=== PATIENT | male | born 1980 | race Caucasian/White ===

== ENCOUNTER → 2023-03-22 10:12 | Outpatient (CLI) | payer OTHER, MEDICAID, SELFPAY ==
[2023-03-22 11:04] LABS: Influenza A - CEPHEID Flu A NEGATIVE (NEGATIVE); Influenza B - CEPHEID Flu B NEGATIVE (NEGATIVE); Respiratory Syncytial Virus Negative (Negative)
[2023-03-22 11:18] LABS: COVID-19 CEPHEID 4-PLEX PCR Negative (Negative)
== END ==
PROVIDERS: Visit Provider Nurse Practitioner Family
DX: R51.9 Headache, unspecified (principal)
CPT/HCPCS: 0241U

== ENCOUNTER → 2023-08-25 08:39 | Outpatient (CLI) | payer OTHER, MEDICAID, SELFPAY ==
[2023-08-25 09:23] LABS: Influenza A - CEPHEID Flu A NEGATIVE (NEGATIVE); Influenza B - CEPHEID Flu B NEGATIVE (NEGATIVE); Respiratory Syncytial Virus Negative (Negative)
[2023-08-25 09:24] LABS: COVID-19 CEPHEID 4-PLEX PCR Negative (Negative)
== END ==
PROVIDERS: Visit Provider Nurse Practitioner Family
DX: R05.1 Acute cough (principal)
CPT/HCPCS: 0241U; C9803

== ENCOUNTER → 2023-10-11 12:46 | Outpatient (CLI) | payer OTHER, SELFPAY ==
--- NOTE | 2023-10-11 12:49 | DI.RAD.S_ITS ---
PROCEDURE: XR LUMBAR SPINE MIN 4V INDICATIONS: Lumbar pain TECHNIQUE: 5 views of the lumbar spine were acquired, including bilateral oblique views. COMPARISON: None. FINDINGS: Bones: 5 nonrib-bearing vertebrae are present. Mild dextrocurvature of the lumbar spine. Facet arthropathy of the lower lumbar spine. Mild degenerative endplate changes. No vertebral body compression fractures. No suspicious bony lesions. Soft tissues: Overlying bowel gas pattern is normal. No suspicious soft tissue calcifications. Right upper quadrant surgical clips. Oblique images: No pars defects. IMPRESSION: Mild degenerative changes of the lumbar spine with mild dextrocurvature. Dictated by: Edwin Hdz M.D. on 10/11/2023 at 14:11 Approved by: Edwin Hdz M.D. on 10/11/2023 at 14:13
--- NOTE | 2023-10-11 12:49 | DI.RAD.S_ITS ---
PROCEDURE: XR SHOULDER LT MIN 2V INDICATIONS: Left shoulder pain TECHNIQUE: 3 views of the shoulder were acquired. COMPARISON: None. FINDINGS: Bones: No fractures or dislocations. No suspicious bony lesions. Visualized ribs appear intact. Soft tissues: No suspicious soft tissue calcifications. IMPRESSION: No acute bony abnormality. Dictated by: Edwin Hdz M.D. on 10/11/2023 at 14:13 Approved by: Edwin Hdz M.D. on 10/11/2023 at 14:14
--- NOTE | 2023-10-11 12:49 | DI.RAD.S_ITS ---
PROCEDURE: XR CLAVICLE LT INDICATIONS: Clavicle tenderness TECHNIQUE: 2 views of the clavicle were acquired. COMPARISON: None. FINDINGS: Bones: No fractures or dislocations. No suspicious bony lesions. Soft tissues: No suspicious soft tissue calcifications. IMPRESSION: No acute bony abnormality. Dictated by: Edwin Hdz M.D. on 10/11/2023 at 14:11 Approved by: Edwin Hdz M.D. on 10/11/2023 at 14:11
== END ==
PROVIDERS: Referring Provider Nurse Practitioner Family; Visit Provider Nurse Practitioner Family
DX: W19.XXXA Unspecified fall, initial encounter (principal); M47.816 Spondylosis without myelopathy or radiculopathy, lumbar region; S46.912A Strain of unspecified muscle, fascia and tendon at shoulder and upper arm level, left arm, initial encounter
CPT/HCPCS: 72110; 73000; 73030

== ENCOUNTER 2024-01-14 08:32 | Emergency (ER) | payer OTHER, MEDICAID, SELFPAY ==
[2024-01-14 08:42] VITALS: BP 134/81; PULSE 65; RESP 17; TEMP 36.4; O2SAT 95; BMI 28.7
--- NOTE | 2024-01-14 08:47 | DI.RAD.S_ITS ---
PROCEDURE: XR CHEST 1V INDICATIONS: chest pain TECHNIQUE: One view of the chest was acquired. COMPARISON: None. FINDINGS: Surgical changes and devices: None. Lungs and pleura: Lungs are clear. No pleural effusions or pneumothorax. Mediastinum: Mediastinal contours appear normal. Heart size is normal. Bones and chest wall: No suspicious bony lesions. Overlying soft tissues appear unremarkable. IMPRESSION: No acute cardiopulmonary abnormality is seen. Approved by: Imelda Walls M.D. on 01/14/2024 at 9:29
[2024-01-14 08:51] VITALS: PULSE 57; RESP 14; O2SAT 97
[2024-01-14 09:00] VITALS: BP 131/83; PULSE 53; RESP 20; O2SAT 96
[2024-01-14 09:07] LABS: Add Manual Diff / Slide Review NO; Basophils Absolute Auto 100 /uL (0-100); Basophils Percent Auto 0.7 % (0-2); Eosinophils Absolute Auto 100 /uL (0-450); Eosinophils Percent Auto 1.3 % (2-4); Hematocrit 43.8 % (41-53); Hemoglobin 15.1 g/dL (13.5-17.5); Lymphocytes Absolute Auto 2000 /uL (1100-4500); Lymphocytes Percent Auto 26.2 % (25-40); Mean Corpuscular HGB Conc 34.4 % (30-36); Mean Corpuscular Hemoglobin 31.5 PG (26-34); Mean Corpuscular Volume 91.6 fL (80-100); Monocytes Absolute Auto 500 /uL (0-900); Monocytes Percent Auto 6.6 % (3-14); Neutrophils Absolute Auto 5100 /uL (1500-7000); Neutrophils Percent Auto 65.2 % (50-75); Platelet Count 220 X10^3/uL (150-400); Red Blood Cell Count 4.78 X10^6/uL (4.5-5.9); Red Cell Distribution Width 13.9 % (11.6-14.8); White Blood Cell Count 7.8 X10^3/uL (4.5-11.0)
[2024-01-14 09:15] LABS: PTT Partial Thromboplastin Tim 33 SECONDS (25.1-36.5)
[2024-01-14 09:19] LABS: COVID19 -Nasal RAPID Negative (Negative)
--- NOTE | 2024-01-14 09:22 | ED_ITS ---
HPI - Chest Pain General Chief Complaint: Chest Pain Stated Complaint: chest pains/headache Time Seen by Provider: 01/14/24 09:12 Source: patient Mode of arrival: Ambulatory History of Present Illness HPI narrative: Patient 43-year-old male history of smoking hypertension hyperlipidemia presenting today with chest heaviness ongoing for the last few days. He denies any sort of shortness of breath who remains heaviness center of his chest. No nausea vomiting he denies any fever or cough. He is also having headache. He denies any nausea or vomiting. It has been an ongoing headache he has got a mild sore throat. Related Data Allergies Allergy/AdvReac Type Severity Reaction Status Date / Time Penicillins Allergy Mild Hives Verified 01/14/24 08:46 Patient History Social History Smoking Status: Current every day smoker Smoking Status: Current every day smoker alcohol intake frequency: 0-2 drinks per day Substance Use Type: marijuana Exam Initial Vital Signs Initial Vital Signs: Vital Signs Temperature 97.5 F L 01/14/24 08:42 Pulse Rate 65 01/14/24 08:42 Respiratory Rate 17 01/14/24 08:42 Blood Pressure 134/81 01/14/24 08:42 Pulse Oximetry 95 01/14/24 08:42 Oxygen Delivery Method Room Air 01/14/24 08:42 GENERAL: Alert 43-year-old male appears older than stated age and in no acute distress. HEENT: Head atraumatic,EOMI, pupils reactive, face symmetric, moist mucous membranes, no meningeal signs CARDIOVASCULAR: Regular rate and rhythm without murmurs, rubs or gallops. RESPIRATORY: Breath sounds equal bilaterally, no wheezes rales or rhonchi. ABDOMEN: Soft, nontender. Normoactive bowel sounds all 4 quadrants. No guarding or rebound. EXTREMITIES: Normal range of motion, no clubbing or edema. Neurovascularly intact NEUROLOGICAL: Alert and oriented x4.Normal gait and speech. SKIN: Warm, dry, no laceration, no petechiae, no rashes or lesions. Course Orders Ordered: ED Orders 01/14/24 08:47 XR chest 1V Stat Comprehensive Metabolic Panel Stat Lipase Stat Magnesium Stat Troponin & CK Cardiac Panel Stat EKG-12 Lead Stat 01/14/24 08:55 COVID19 -Nasal RAPID Stat Complete Blood Count AUTO DIFF Stat PTT Partial Thromboplastin Alberto Stat Prothrombin Time INR Stat Discontinued Medications Aspirin (Aspirin 81 Mg Chew Tab) 324 mg PO NOW ONE Stop: 01/14/24 08:48 Last Admin: 01/14/24 10:30 Dose: Not Given Documented By: CHARLES Sodium Chloride (Normal Saline 0.9%) 1,000 mls @ 1,000 mls/hr IV BOLUS ONE Stop: 01/14/24 11:28 Last Admin: 01/14/24 10:31 Dose: Not Given Documented By: CHARLES Ketorolac Tromethamine (Ketorolac 30 Mg/Ml Vial) 15 mg IV NOW ONE Stop: 01/14/24 10:31 Last Admin: 01/14/24 10:31 Dose: Not Given Documented By: CHARLES Vital Signs Vital signs: Vital Signs - 8 hr 01/14/24 08:42 01/14/24 08:51 01/14/24 09:00 Temperature 97.5 F L Pulse Rate 65 57 L Respiratory Rate 17 14 Blood Pressure 134/81 131/83 Pulse Oximetry 95 97 Oxygen Delivery Method Room Air 01/14/24 09:00 01/14/24 09:30 01/14/24 09:30 Temperature Pulse Rate 53 L 50 L Respiratory Rate 20 14 Blood Pressure 120/74 Pulse Oximetry 96 95 Oxygen Delivery Method 01/14/24 10:00 01/14/24 10:00 01/14/24 10:30 Temperature Pulse Rate 63 Respiratory Rate 16 Blood Pressure 122/73 129/81 Pulse Oximetry 96 Oxygen Delivery Method 01/14/24 10:30 Temperature Pulse Rate 76 Respiratory Rate 23 Blood Pressure Pulse Oximetry 98 Oxygen Delivery Method Room Air MDM - Chest Pain Lab Data 01/14/24 08:55 01/14/24 08:47 Labs: Lab Results 01/14/24 01/14/24 Range/Units 08:47 08:55 WBC 7.8 (4.5-11.0) X10^3/uL RBC 4.78 (4.5-5.9) X10^6/uL Hgb 15.1 (13.5-17.5) g/dL Hct 43.8 (41-53) % MCV 91.6 (80-100) fL MCH 31.5 (26-34) PG MCHC 34.4 (30-36) % RDW 13.9 (11.6-14.8) % Plt Count 220 (150-400) X10^3/uL Neut % (Auto) 65.2 (50-75) % Lymph % (Auto) 26.2 (25-40) % [place] % (Auto) 6.6 (3-14) % Eos % (Auto) 1.3 L (2-4) % Baso % (Auto) 0.7 (0-2) % Neut # (Auto) 5100 (7219-2977) /uL Lymph # (Auto) 2000 (0811-2504) /uL [place] # (Auto) 500 (0-900) /uL Eos # (Auto) 100 (0-450) /uL Baso # (Auto) 100 (0-100) /uL PT 11.0 (9.4-12.5) SECONDS INR 1.0 (0.9-1.3) APTT 33 (25.1-36.5) SECONDS Sodium 136 L (137-145) mmol/L Potassium 4.2 (3.4-5.1) mmol/L Chloride 106 (98-107) mmol/L Carbon Dioxide 25 (22-32) mmol/L BUN 14 (9-20) mg/dL Creatinine 0.81 (0.66-1.25) mg/dL Estimated GFR > 60 (>60) mL/min BUN/Creatinine Ratio 17.3 (6-22) Glucose 106 H (70-100) mg/dL Calcium 8.6 (8.4-10.2) mg/dL Magnesium 2.1 (1.6-2.3) mg/dL Total Bilirubin 0.8 (0.2-1.3) mg/dL AST 26 (17-59) IU/L ALT 20 (<50) IU/L Alkaline Phosphatase 78 (38-126) U/L Total Creatine Kinase 141 (55-170) U/L Troponin I < 0.012 (0.01-0.034) ng/mL Total Protein 7.0 (6.3-8.2) g/dL Albumin 3.9 (3.5-5.0) g/dL Globulin 3.1 (1.7-4.1) g/dL Albumin/Globulin Ratio 1.3 (1.0-2.8) Lipase 146 (23-300) U/L SARS-CoV-2 (PCR) Negative (Negative) Imaging Data Chest x-ray: Radiologist's Impression: PROCEDURE: XR CHEST 1V INDICATIONS: chest pain TECHNIQUE: One view of the chest was acquired. COMPARISON: None. FINDINGS: Surgical changes and devices: None. Lungs and pleura: Lungs are clear. No pleural effusions or pneumothorax. Mediastinum: Mediastinal contours appear normal. Heart size is normal. Bones and chest wall: No suspicious bony lesions. Overlying soft tissues appear unremarkable. IMPRESSION: No acute cardiopulmonary abnormality is seen. Approved by: Imelda Walls M.D. on 01/14/2024 at 9:29 ECG Data Interpretation: Normal sinus rhythm rate 55 DE interval 114 QRS [address] changes MDM Narrative Medical decision making narrative: Patient 43-year-old male presents today with headache upper respiratory like symptoms and some mild chest discomfort. Vitals are stable he does not have any significant wheezing or rhonchi on exam. Blood work has been reviewed he has no leukocytosis, electrolyte abnormality JOSE LUIS or elevated troponin Chest x-ray does not show any cardiopulmonary process At this time patient is offered Toradol and IV fluids he declines. He is overall feeling better. He has no fever or meningeal signs. I suspect upper respiratory viral-like illness. Discharge Plan Departure Patient Disposition: Home Clinical Impression: Viral upper respiratory illness Instructions: DI for Viral Upper Respiratory Infection -- Adult Activity Restrictions/Additional Instructions: *You have been diagnosed with upper respiratory infection *What to do: At this time I suspect that you have some sort of viral illness. No need for antibiotics. Chest x-ray is clear without pneumonia. You have a negative COVID test today. Continue to stay hydrated *Continue to take medications as directed Tylenol Motrin as needed *Follow up with your primary care provider in 2-3 days or call [phone] *Return to ER if you should have increasing chest pain shortness of breath headache or any new, worsening or concerning symptoms Referrals: Taylor,Doctor, [Primary Care Provider] - Stand Alone Forms: Patient Portal/API
[2024-01-14 09:30] VITALS: BP 120/74; PULSE 50; RESP 14; O2SAT 95
[2024-01-14 09:38] LABS: Alanine Aminotransferase 20 IU/L (<50); Albumin 3.9 g/dL (3.5-5.0); Albumin Globulin Ratio 1.3 (1.0-2.8); Alkaline Phosphatase 78 U/L (38-126); Aspartate Aminotransferase 26 IU/L (17-59); BUN Creatinine Ratio 17.3 (6-22); Bilirubin Total 0.8 mg/dL (0.2-1.3); Blood Urea Nitrogen 14 mg/dL (9-20); Calcium 8.6 mg/dL (8.4-10.2); Carbon Dioxide 25 mmol/L (22-32); Chloride 106 mmol/L (98-107); Creatine Kinase 141 U/L (55-170); Estimated Glomerular Filt Rate > 60 mL/min (>60); Globulin 3.1 g/dL (1.7-4.1); Glucose 106 mg/dL (70-100); HEMOLYSIS 29 (0-50); Lipase 146 U/L (23-300); Magnesium 2.1 mg/dL (1.6-2.3); Potassium 4.2 mmol/L (3.4-5.1); Sodium 136 mmol/L (137-145)
[2024-01-14 09:50] LABS: Troponin I < 0.012 ng/mL (0.01-0.034)
[2024-01-14 10:00] VITALS: BP 122/73; PULSE 63; RESP 16; O2SAT 96
[2024-01-14 10:30] VITALS: BP 129/81; PULSE 76; RESP 23; O2SAT 98
== END 2024-01-14 10:53 | disposition home or self-care (01) ==
PROVIDERS: Emergency Provider Emergency Medicine
DX: J06.9 Acute upper respiratory infection, unspecified (principal); J02.9 Acute pharyngitis, unspecified; Z20.822 Contact with and (suspected) exposure to COVID-19
CPT/HCPCS: 36415; 71045; 80053; 82550; 83690; 83735; 84484; 85025; 85610; 85730; 87635; 93005; 99284

== ENCOUNTER → 2024-02-23 16:51 | Outpatient (CLI) | payer OTHER, MEDICAID, SELFPAY ==
--- NOTE | 2024-02-23 16:52 | DI.RAD.S_ITS ---
PROCEDURE: XR TOE RT MIN 2V INDICATIONS: 16penny nail puncture thru thru mid pad to medial dorsum toe TECHNIQUE: 3 views of the 1st toe(s) acquired. COMPARISON: None. FINDINGS: Bones: No acute fracture or dislocation. Radial lucency is noted involving plantar and lateral aspect of 1st distal phalangeal base with cortical disruption . No suspicious bony lesions. Soft tissues: Soft tissue swelling surrounding 1st distal phalanx is seen. No suspicious soft tissue densities. IMPRESSION: Finding likely represent puncture wound involving plantar and lateral aspect of 1st distal phalangeal base. Differential diagnosis would include osteomyelitis suggest clinical correlation and follow-up. Dictated by: Shay Garza M.D. on 02/23/2024 at 17:18 Approved by: Shay Garza M.D. on 02/23/2024 at 17:20
== END ==
PROVIDERS: Referring Provider Student in an Organized Health Care Education/Training Program; Visit Provider Student in an Organized Health Care Education/Training Program
DX: S91.331A Puncture wound without foreign body, right foot, initial encounter (principal); Y99.0 Civilian activity done for income or pay; W45.0XXA Nail entering through skin, initial encounter
CPT/HCPCS: 73660

== ENCOUNTER → 2024-06-13 11:41 | Outpatient (CLI) | payer OTHER, SELFPAY ==
--- NOTE | 2024-06-13 11:43 | DI.RAD.S_ITS ---
PROCEDURE: XR LUMBAR SPINE MIN 4V INDICATIONS: LBP with radiculopathy TECHNIQUE: 5 views of the lumbar spine were acquired, including bilateral oblique views. COMPARISON: [facility], , XR LUMBAR SPINE MIN 4V, 10/11/2023, 13:14. FINDINGS: Bones: 5 nonrib-bearing vertebrae are present. There is normal bony alignment. Mild convex right curvature of the lumbar spine is stable. No vertebral body compression fractures. No suspicious bony lesions. Spine degenerative disc disease and facet arthropathy. Soft tissues: Overlying bowel gas pattern is normal. No suspicious soft tissue calcifications. Cholecystectomy clips. Oblique images: No pars defects. IMPRESSION: Multilevel degenerative disc disease. Multilevel facet arthropathy. No fracture. No acute osseous lesion. If symptoms and/or clinical suspicion for pathology persists, evaluation with CT or MRI should be considered for further assessment. Dictated by: Nicole Brunson MD, PhD on 06/13/2024 at 12:39 Approved by: Nicole Brunson MD, PhD on 06/13/2024 at 12:40
== END ==
PROVIDERS: Referring Provider Physician Assistant Surgical; Visit Provider Physician Assistant Surgical
DX: M47.816 Spondylosis without myelopathy or radiculopathy, lumbar region (principal); M51.36 Other intervertebral disc degeneration, lumbar region; M54.50 Low back pain, unspecified
CPT/HCPCS: 72110

== ENCOUNTER → 2024-10-07 15:25 | Outpatient (CLI) | payer OTHER, SELFPAY ==
--- NOTE | 2024-10-07 15:28 | DI.MRI.S_ITS ---
PROCEDURE: MR LUMBAR SPINE WO CON INDICATIONS: Pain TECHNIQUE: Noncontrast sagittal T1 spin echo and T2 fast echo, sagittal STIR, and T2 fast spin echo through the lumbar spine. In cases with scoliosis, additional coronal T2 fast spin echo may be performed. COMPARISON: [facility], CR, XR LUMBAR SPINE MIN 4V, 06/13/2024, 11:43. FINDINGS: Image quality: Excellent. Alignment and Curvature: There is trace retrolisthesis of L4 on L5, L5 on S1. There is appearance of transitional anatomy with what appears to be lumbarization of the 1st sacral vertebral body. Recommend correlation with full x-ray spine series prior to any surgical intervention. Bone Marrow: Marrow is of normal overall signal. Increased T1 and T2 signal is present at L2 as well as S3 most consistent with hemangiomas. No acute vertebral body compression fractures. Spinal Cord: Conus medullaris terminates at the L1 level. Visualized cord demonstrates normal signal and size. Paraspinous Soft Tissues: No paravertebral masses. T12-L1: No disc bulge, spinal stenosis or foraminal narrowing. L1-L2: No disc bulge, spinal stenosis or foraminal narrowing. L2-L3: Minimal disc bulge without spinal stenosis. Minimal bilateral foraminal narrowing with mild facet and ligamentum flavum hypertrophy. L3-L4: Minimal disc bulge without spinal stenosis. Mild left and minimal right foraminal narrowing with facet and ligamentum flavum hypertrophy. L4-L5: Mild disc bulge without spinal stenosis. Moderate bilateral foraminal narrowing, left greater than right with facet and ligamentum flavum hypertrophy. L5-S1: Mild disc bulge without spinal stenosis. Moderate left mild right foraminal narrowing with facet and ligamentum flavum hypertrophy IMPRESSION: Multilevel disc bulges. Multilevel foraminal narrowing most severe at L4-5 and L5-S1 secondary to facet and ligamentum flavum arthropathy. Dictated by: Sally Chamberlain M.D. on 10/10/2024 at 9:53 Approved by: Sally Chamberlain M.D. on 10/10/2024 at 9:56
== END ==
LOC: MRI 15:26
PROVIDERS: Referring Provider Nurse Practitioner Family; Visit Provider Nurse Practitioner Family
DX: S33.5XXA Sprain of ligaments of lumbar spine, initial encounter (principal); M51.369 Other intervertebral disc degeneration, lumbar region without mention of lumbar back pain or lower extremity pain; M51.379 Other intervertebral disc degeneration, lumbosacral region without mention of lumbar back pain or lower extremity pain; M47.816 Spondylosis without myelopathy or radiculopathy, lumbar region; M47.817 Spondylosis without myelopathy or radiculopathy, lumbosacral region; X58.XXXA Exposure to other specified factors, initial encounter
CPT/HCPCS: 72148

== ENCOUNTER 2024-10-31 10:55 | Emergency (ER) | payer OTHER, MEDICAID, SELFPAY ==
[2024-10-31 11:04] VITALS: BP 116/81; PULSE 71; RESP 16; TEMP 36.4; O2SAT 99; BMI 28.7
--- NOTE | 2024-10-31 11:08 | DI.RAD.S_ITS ---
PROCEDURE: XR RIBS RT MIN 3V W CXR 1V INDICATIONS: injury, right anterior mid chest pop TECHNIQUE: 2 views of the ribs were acquired, along with a single view chest. COMPARISON: None. FINDINGS: Surgical changes and devices: None. Bones and chest wall: No fractures or dislocations. No suspicious bony lesions. Overlying soft tissues appear unremarkable. Lungs and pleura: No pleural effusions or pneumothorax. Lungs appear clear. Mediastinum: Mediastinal contours appear normal. Heart size is normal. IMPRESSION: No displaced rib fracture or pneumothorax. Dictated by: Kamila Sanchez M.D. on 10/31/2024 at 11:23 Approved by: Kamila Sanchez M.D. on 10/31/2024 at 11:24
--- NOTE | 2024-10-31 11:51 | EKG_ITS ---
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
[2024-10-31 11:54] LABS: Hematocrit 44.1 % (41-53); Hemoglobin 15.4 g/dL (13.5-17.5); Mean Corpuscular HGB Conc 34.8 % (30-36); Mean Corpuscular Hemoglobin 32.3 PG (26-34); Platelet Count 201 X10^3/uL (150-400); Red Blood Cell Count 4.75 X10^6/uL (4.5-5.9); Red Cell Distribution Width 13.3 % (11.6-14.8); White Blood Cell Count 8.3 X10^3/uL (4.5-11.0)
[2024-10-31 11:55] LABS: Add Manual Diff / Slide Review NO; Basophils Absolute Auto 0 /uL (0-100); Basophils Percent Auto 0.6 % (0-2); Eosinophils Absolute Auto 100 /uL (0-450); Eosinophils Percent Auto 1.2 % (2-4); Lymphocytes Absolute Auto 1900 /uL (1100-4500); Lymphocytes Percent Auto 22.2 % (25-40); Monocytes Absolute Auto 600 /uL (0-900); Neutrophils Absolute Auto 5800 /uL (1500-7000)
[2024-10-31 11:59] VITALS: BP 122/77; PULSE 67; RESP 17; O2SAT 97
[2024-10-31 12:02] LABS: INR 0.9 (0.9-1.3); Prothrombin Time 10.5 SECONDS (9.4-12.5)
[2024-10-31 12:05] LABS: Alanine Aminotransferase 24 IU/L (<50); Albumin 4.1 g/dL (3.5-5.0); Albumin Globulin Ratio 1.3 (1.0-2.8); Alkaline Phosphatase 57 U/L (38-126); Aspartate Aminotransferase 25 IU/L (17-59); BUN Creatinine Ratio 16.1 (6-22); Bilirubin Total 0.7 mg/dL (0.2-1.3); Blood Urea Nitrogen 14 mg/dL (9-20); Calcium 8.9 mg/dL (8.4-10.2); Carbon Dioxide 24 mmol/L (22-32); Chloride 107 mmol/L (98-107); Creatine Kinase 103 U/L (55-170); Estimated Glomerular Filt Rate > 60 mL/min (>60); Globulin 3.1 g/dL (1.7-4.1); Glucose 101 mg/dL (70-100); HEMOLYSIS < 15 (0-50); Lipase 148 U/L (23-300); PTT Partial Thromboplastin Tim 32 SECONDS (25.1-36.5); Sodium 135 mmol/L (137-145); Total Protein 7.2 g/dL (6.3-8.2)
[2024-10-31 12:17] LABS: NT-proBNP (BNP-Adult 18+) 47 pg/mL (<125); Troponin I < 0.012 ng/mL (0.01-0.034)
[2024-10-31 12:42] LABS: D Dimer 420 ng/ml (<500)
--- NOTE | 2024-10-31 12:42 | PC.NURSE ---
Lungs are clear bilateral to auscultation.
--- NOTE | 2024-10-31 18:17 | ED.UPPEXIN ---
HPI - Extremity Injury (Upper) <Nicole Upton PA-C - Last Filed: 10/31/24 18:24> General Chief Complaint: Extremity Injury, Upper Stated Complaint: heard a pop in his rib cage Time Seen by Provider: 10/31/24 11:22 Source: patient Mode of arrival: Family Vehicle History of Present Illness HPI narrative: 44-year-old male presents to the ED with 3 days of right-sided chest pain. Patient states he was leaning over to leaf size picker something over a chair, when he heard a snap and since then he has had right-sided chest pain. Patient complains of pain with inspiration. Patient also states that he has been coughing since then. Endorses mild shortness of breath and right arm pain. No history of blood clots. Patient is a daily cigarette smoker for several years. Smokes 1 pack a day. Consumes 2-3 alcoholic drinks daily. Uses marijuana. Denies any other recreational drug use. Related Data Previous Rx's Medication Instructions Recorded methylprednisolone 4 mg tablets in See Rx Instructions PO PER PKG DIR 06/13/24 a dose pack (Medrol (Jase)) #21 ea Allergies Allergy/AdvReac Type Severity Reaction Status Date / Time Penicillins Allergy Mild Hives Verified 10/31/24 11:04 Review of Systems <Nicole Upton PA-C - Last Filed: 10/31/24 18:24> Constitutional Constitutional: Denies chills, Denies fatigue, Denies fever(s), Denies frequent falls, Denies lethargy and Denies weakness Eyes Eyes: Denies change in vision, Denies eye discharge, Denies irritation and Denies loss of vision ENT Ears, Nose, Mouth, and Throat: Denies change in voice, Denies dizziness, Denies neck pain, Denies sore throat and Denies throat swelling Cardiovascular Cardiovascular: Denies chest pain, Denies irregular heart rhythm, Denies lightheadedness, Denies palpitations, Denies dyspnea, Denies dyspnea on exertion and Denies orthopnea Comments: Right-sided chest and rib pain Respiratory Respiratory: Denies cough, Denies dyspnea, Denies dyspnea on exertion and Denies wheezing Gastrointestinal Gastrointestinal: Denies abdominal pain, Denies change in bowel habits, Denies diarrhea, Denies nausea and Denies vomiting Musculoskeletal Musculoskeletal: Denies neck pain and Denies numbness Integumentary/Breasts Skin/Breast: Denies pruritus, Denies erythema, Denies rash and Denies wounds Neurologic Neurologic: Denies behavioral changes, Denies confusion, Denies dizziness, Denies frequent falls, Denies loss of vision, Denies numbness and Denies weakness Psychiatric Psychiatric: Denies anxiety, Denies behavioral changes, Denies confusion, Denies depression, Denies homicidal ideation and Denies suicidal ideation Endocrine Endocrine: Denies fatigue, Denies flushing and Denies palpitations Hematologic/Lymphatic Hematologic/Lymphatic: Denies easy bruising Allergic/Immunologic Allergic/Immunologic: Denies urticaria, Denies throat swelling and Denies wheezing Patient History <Nicole Upton PA-C - Last Filed: 10/31/24 18:24> Social History Smoking Status: Current every day smoker Smoking Status: Current every day smoker tobacco type: cigarettes alcohol intake frequency: 0-2 drinks per day Exam <Nicole Upton PA-C - Last Filed: 10/31/24 18:24> Narrative Exam Narrative: Const General:?cooperative, healthy appearing and comfortable [facility] Head:?normal to inspection Ears:?hearing grossly normal bilaterally Nose:?external nose normal Face and sinus:?normal facial exam and sinuses nontender Mouth:?oral mucosae normal Throat:?posterior oropharynx normal Eyes General:?appearance normal, both eyes and all related structures Neck Neck:?normal visual inspection and no lymphadenopathy noted Resp Effort & Inspection:?normal respiratory effort Auscultation:?clear to auscultation bilaterally Cardio Rate:?regular rate Rhythm:?regular rhythm There is significant tenderness to palpation of the right lower chest as well as right upper quadrant. No bruising, rashes noted Neuro General:?patient alert, patient awake and patient oriented x3 Initial Vital Signs Initial Vital Signs: Vital Signs Temperature 97.5 F L 10/31/24 11:04 Pulse Rate 71 10/31/24 11:04 Respiratory Rate 16 10/31/24 11:04 Blood Pressure 116/81 10/31/24 11:04 Pulse Oximetry 99 10/31/24 11:04 Oxygen Delivery Method Room Air 10/31/24 11:04 <Dora Grimes MD - Last Filed: 11/07/24 18:15> Initial Vital Signs Initial Vital Signs: Vital Signs Temperature 97.5 F L 10/31/24 11:04 Pulse Rate 71 10/31/24 11:04 Respiratory Rate 16 10/31/24 11:04 Blood Pressure 116/81 10/31/24 11:04 Pulse Oximetry 99 10/31/24 11:04 Oxygen Delivery Method Room Air 10/31/24 11:04 Course <Nicole Upton PA-C - Last Filed: 10/31/24 18:24> Orders Ordered: Discontinued Medications Ketorolac Tromethamine (Ketorolac 30 Mg/Ml Vial) 15 mg IV NOW ONE Stop: 10/31/24 11:33 Last Admin: 10/31/24 11:51 Dose: Not Given Documented By: OMAR Vital Signs Vital signs: Vital Signs - 8 hr 10/31/24 11:04 10/31/24 11:59 Temperature 97.5 F L Pulse Rate 71 67 Respiratory Rate 16 17 Blood Pressure 116/81 122/77 Pulse Oximetry 99 97 Oxygen Delivery Method Room Air Room Air <Dora Grimes MD - Last Filed: 11/07/24 18:15> Orders Ordered: Discontinued Medications Ketorolac Tromethamine (Ketorolac 30 Mg/Ml Vial) 15 mg IV NOW ONE Stop: 10/31/24 11:33 Last Admin: 10/31/24 11:51 Dose: Not Given Documented By: RLS Vital Signs Vital signs: Vital Signs - 8 hr 10/31/24 11:04 10/31/24 11:59 Temperature 97.5 F L Pulse Rate 71 67 Respiratory Rate 16 17 Blood Pressure 116/81 122/77 Pulse Oximetry 99 97 Oxygen Delivery Method Room Air Room Air MDM - Extremity Injury (Upper) <Nicole Upton PA-C - Last Filed: 10/31/24 18:24> Lab Data 10/31/24 11:42 10/31/24 11:42 Labs: Lab Results 10/31/24 Range/Units 11:42 WBC 8.3 (4.5-11.0) X10^3/uL RBC 4.75 (4.5-5.9) X10^6/uL Hgb 15.4 (13.5-17.5) g/dL Hct 44.1 (41-53) % MCV 93.0 (80-100) fL MCH 32.3 (26-34) PG MCHC 34.8 (30-36) % RDW 13.3 (11.6-14.8) % Plt Count 201 (150-400) X10^3/uL Neut % (Auto) 69.0 (50-75) % Lymph % (Auto) 22.2 L (25-40) % [place] % (Auto) 7.0 (3-14) % Eos % (Auto) 1.2 L (2-4) % Baso % (Auto) 0.6 (0-2) % Neut # (Auto) 5800 (7577-9898) /uL Lymph # (Auto) 1900 (6279-3859) /uL [place] # (Auto) 600 (0-900) /uL Eos # (Auto) 100 (0-450) /uL Baso # (Auto) 0 (0-100) /uL PT 10.5 (9.4-12.5) SECONDS INR 0.9 (0.9-1.3) APTT 32 (25.1-36.5) SECONDS D-Dimer 420 (<500) ng/ml Sodium 135 L (137-145) mmol/L Potassium 4.0 (3.4-5.1) mmol/L Chloride 107 (98-107) mmol/L Carbon Dioxide 24 (22-32) mmol/L BUN 14 (9-20) mg/dL Creatinine 0.87 (0.66-1.25) mg/dL Estimated GFR > 60 (>60) mL/min BUN/Creatinine Ratio 16.1 (6-22) Glucose 101 H (70-100) mg/dL Calcium 8.9 (8.4-10.2) mg/dL Total Bilirubin 0.7 (0.2-1.3) mg/dL AST 25 (17-59) IU/L ALT 24 (<50) IU/L Alkaline Phosphatase 57 (38-126) U/L Total Creatine Kinase 103 (55-170) U/L Troponin I < 0.012 (0.01-0.034) ng/mL NT-Pro-B Natriuret Pep 47 (<125) pg/mL Total Protein 7.2 (6.3-8.2) g/dL Albumin 4.1 (3.5-5.0) g/dL Globulin 3.1 (1.7-4.1) g/dL Albumin/Globulin Ratio 1.3 (1.0-2.8) Lipase 148 (23-300) U/L MDM Narrative Medical decision making narrative: 44-year-old male presents to the ED with 3 days of right-sided chest pain. Concern for rib fractures versus musculoskeletal sprain/strain versus PE versus ACS versus other. Will obtain labs, EKG, chest x-ray, troponin, BNP, labs. Rib and chest x-ray shows no displaced rib fracture or pneumothorax. EKG shows sinus bradycardia with a ventricular rate of 57. No acute ST-T changes. No axis deviation. Labs within normal limits. Troponin and BNP within normal limits. D-dimer was ordered which was also within normal limits. Patient declined Toradol or any other pain medication. Patient continued having significant pain. CT chest abdomen pelvis ordered to rule out any intra-abdominal injuries versus rib fractures. Patient became upset at this point and refused the CT and left the ED Against Medical Advice. Medical records reviewed: Yes <Dora Grimes MD - Last Filed: 11/07/24 18:15> Lab Data Labs: Lab Results 10/31/24 Range/Units 11:42 WBC 8.3 (4.5-11.0) X10^3/uL RBC 4.75 (4.5-5.9) X10^6/uL Hgb 15.4 (13.5-17.5) g/dL Hct 44.1 (41-53) % MCV 93.0 (80-100) fL MCH 32.3 (26-34) PG MCHC 34.8 (30-36) % RDW 13.3 (11.6-14.8) % Plt Count 201 (150-400) X10^3/uL Neut % (Auto) 69.0 (50-75) % Lymph % (Auto) 22.2 L (25-40) % [place] % (Auto) 7.0 (3-14) % Eos % (Auto) 1.2 L (2-4) % Baso % (Auto) 0.6 (0-2) % Neut # (Auto) 5800 (8966-1842) /uL Lymph # (Auto) 1900 (9017-8116) /uL [place] # (Auto) 600 (0-900) /uL Eos # (Auto) 100 (0-450) /uL Baso # (Auto) 0 (0-100) /uL PT 10.5 (9.4-12.5) SECONDS INR 0.9 (0.9-1.3) APTT 32 (25.1-36.5) SECONDS D-Dimer 420 (<500) ng/ml Sodium 135 L (137-145) mmol/L Potassium 4.0 (3.4-5.1) mmol/L Chloride 107 (98-107) mmol/L Carbon Dioxide 24 (22-32) mmol/L BUN 14 (9-20) mg/dL Creatinine 0.87 (0.66-1.25) mg/dL Estimated GFR > 60 (>60) mL/min BUN/Creatinine Ratio 16.1 (6-22) Glucose 101 H (70-100) mg/dL Calcium 8.9 (8.4-10.2) mg/dL Total Bilirubin 0.7 (0.2-1.3) mg/dL AST 25 (17-59) IU/L ALT 24 (<50) IU/L Alkaline Phosphatase 57 (38-126) U/L Total Creatine Kinase 103 (55-170) U/L Troponin I < 0.012 (0.01-0.034) ng/mL NT-Pro-B Natriuret Pep 47 (<125) pg/mL Total Protein 7.2 (6.3-8.2) g/dL Albumin 4.1 (3.5-5.0) g/dL Globulin 3.1 (1.7-4.1) g/dL Albumin/Globulin Ratio 1.3 (1.0-2.8) Lipase 148 (23-300) U/L Discharge Plan Departure Patient Disposition: Left Against Medical Advice Clinical Impression: Patient left before treatment completed Prescriptions: No Action methylprednisolone [Medrol (Jase)] 4 mg tablets,dose pack See Rx Instructions PO PER PKG DIR Qty: 21 0RF Rx Instructions: PO PER PKG DIR for 6 days Stand Alone Forms: Patient Portal/API, Against Medical Advice ED Sign-out <Dora Grimes MD - Last Filed: 11/07/24 18:15> Cosign ED Attending Gordoature Attestation: I did not see this patient. I was available all times for consultation.
== END 2024-10-31 13:12 | disposition left against medical advice (07) ==
PROVIDERS: Emergency Provider Student in an Organized Health Care Education/Training Program
DX: R07.9 Chest pain, unspecified (principal); R00.1 Bradycardia, unspecified
CPT/HCPCS: 36415; 71101; 80053; 82550; 83690; 83880; 84484; 85025; 85379; 85610; 85730; 93005; 93010; 99284

== ENCOUNTER 2025-04-15 00:23 | Emergency (ER) | payer OTHER, MEDICAID, SELFPAY ==
[2025-04-15 00:31] VITALS: BP 116/75; PULSE 56; RESP 18; TEMP 36.6; O2SAT 96; BMI 28.7
--- NOTE | 2025-04-15 00:53 | DI.RAD.S_ITS ---
PROCEDURE: XR SHOULDER LT MIN 2V INDICATIONS: fall, pain TECHNIQUE: 4 views of the shoulder were acquired. COMPARISON: [facility], CR, XR SHOULDER LT MIN 2V, 10/11/2023, 13:14. FINDINGS AND IMPRESSION: Mildly displaced and comminuted fractures of the proximal humerus involving the greater tuberosity, lesser tuberosity, and neck. Surrounding joint effusion and edema are present. No glenohumeral dislocation identified. Linear radiopacity projects over the upper chest, exact location is indeterminate. Dictated by: Jimbo Cadena M.D. on 04/15/2025 at 1:37 Approved by: Jimbo Cadena M.D. on 04/15/2025 at 1:38
--- NOTE | 2025-04-15 00:53 | DI.RAD.S_ITS ---
PROCEDURE: XR CHEST 1V INDICATIONS: fall, pain TECHNIQUE: One view of the chest was acquired. COMPARISON: [facility], CR, XR CHEST 1V, 01/14/2024, 8:54. FINDINGS AND IMPRESSION: No definite pneumothorax. No airspace consolidation or pleural effusion on this single view study. Normal heart size. Partially seen left proximal humeral hardware. Linear radiopacity projects over the left upper chest. Dictated by: Jimbo Cadena M.D. on 04/15/2025 at 1:38 Approved by: Jimbo Cadena M.D. on 04/15/2025 at 1:38
--- NOTE | 2025-04-15 00:53 | DI.RAD.S_ITS ---
PROCEDURE: XR WRIST LT MIN 3V INDICATIONS: fall, pain TECHNIQUE: 3 views of the wrist were acquired. COMPARISON: None. FINDINGS AND IMPRESSION: No dislocation. No acute displaced fracture. No suspicious soft tissue calcifications. If there is high concern for occult injury, consider repeat radiography or cross-sectional imaging. Dictated by: Jimbo Cadena M.D. on 04/15/2025 at 1:34 Approved by: Jimbo Cadena M.D. on 04/15/2025 at 1:35
--- NOTE | 2025-04-15 00:53 | DI.RAD.S_ITS ---
PROCEDURE: XR ELBOW LT MIN 3V INDICATIONS: fall, pain TECHNIQUE: 2 views of the elbow were acquired. COMPARISON: None. FINDINGS AND IMPRESSION: No displaced fracture or dislocation. Slightly irregular contour on lateral view of the radial neck, possibly artifact as there is no significant joint effusion. Positioning mildly limits evaluation. If there is high concern for occult injury, consider repeat radiography or cross-sectional imaging. Dictated by: Jimbo Cadena M.D. on 04/15/2025 at 1:35 Approved by: Jimbo Cadena M.D. on 04/15/2025 at 1:36
--- NOTE | 2025-04-15 02:18 | ED_ITS ---
HPI - Extremity Injury (Upper) General Chief Complaint: Extremity Injury, Upper Stated Complaint: Fall. injured Lft hand/arm Time Seen by Provider: 04/15/25 01:57 Source: patient and family Mode of arrival: Wheelchair History of Present Illness HPI narrative: 44-year-old gentleman presents with fall while walking earlier tonight tripping over uneven sidewalk and landing over his left shoulder no having difficulty moving it. Patient denies headache, dizziness, blurred vision, chest pain, shortness breath, neck, back, abdominal pain, numbness, tingling, down the arms or legs, or bowel or bladder incontinence. Other than what is stated 14 point review of system is negative. Related Data Previous Rx's Medication Instructions Recorded methylprednisolone 4 mg tablets in See Rx Instructions PO PER PKG DIR 06/13/24 a dose pack (Medrol (Jase)) #21 ea hydrocodone 5 mg-acetaminophen 325 1 tab PO Q4-6H PRN pain #20 tabs 04/15/25 mg tablet Allergies Allergy/AdvReac Type Severity Reaction Status Date / Time Penicillins Allergy Mild Hives Verified 10/31/24 11:04 Review of Systems Review of Systems ROS Unobtainable: All systems reviewed & are unremarkable except as noted in HPI and below Patient History Social History Smoking Status: Current every day smoker Smoking Status: Current every day smoker tobacco type: cigarettes alcohol intake frequency: 0-2 drinks per day Exam Narrative Exam Narrative: GENERAL: [82] year old patient appears stated age. Well-developed patient, in mild distress. HEAD: Atraumatic. Normocephalic. EYES: Pupils equal round and reactive. Extraocular motions intact. No scleral icterus. No injection or drainage. ENT: Nose without bleeding, purulent drainage. Throat without erythema, tonsillar hypertrophy or exudate. Airway patent. NECK: Trachea midline. Non tender CARDIOVASCULAR: Regular rate and rhythm without murmurs, gallops, or rubs. RESPIRATORY: Clear to auscultation. Breath sounds equal bilaterally. No wheezes, rales, or rhonchi. GASTROINTESTINAL: Abdomen soft, non-tender, nondistended. EXTREMITIES: No edema or joint tenderness. BACK: Nontender without deformity or crepitance. No flank tenderness. NEURO: AOx3. SKIN: No rash or erythema of visible areas Initial Vital Signs Initial Vital Signs: Vital Signs Temperature 97.8 F 04/15/25 00:31 Pulse Rate 56 L 04/15/25 00:31 Respiratory Rate 18 04/15/25 00:31 Blood Pressure 116/75 04/15/25 00:31 Pulse Oximetry 96 04/15/25 00:31 Oxygen Delivery Method Room Air 04/15/25 00:31 Course Orders Ordered: ED Orders 04/15/25 00:53 XR chest 1V Stat XR elbow LT min 3V Stat XR shoulder LT 2+ views Stat XR wrist LT min 3V Stat Vital Signs Vital signs: Vital Signs - 8 hr 04/15/25 00:31 Temperature 97.8 F Pulse Rate 56 L Respiratory Rate 18 Blood Pressure 116/75 Pulse Oximetry 96 Oxygen Delivery Method Room Air MDM - Extremity Injury (Upper) Imaging Data Extremity x-ray #1: Radiologist's Impression: [address] [address] XRay Report Signed Patient: Esvin Ritter MR#: [id number] : 1980 Acct:[id number] Age/Sex: 44 / M Date of Service: 04/15/25 Loc: ED Accession Number: [id number] Procedure: XR shoulder LT 2+ views Ordering Provider: Frandy Del Rio D.O. PROCEDURE: XR SHOULDER LT MIN 2V INDICATIONS: fall, pain TECHNIQUE: 4 views of the shoulder were acquired. COMPARISON: [facility], , XR SHOULDER LT MIN 2V, 10/11/2023, 13:14. FINDINGS AND IMPRESSION: Mildly displaced and comminuted fractures of the proximal humerus involving the greater tuberosity, lesser tuberosity, and neck. Surrounding joint effusion and edema are present. No glenohumeral dislocation identified. Linear radiopacity projects over the upper chest, exact location is indeterminate. Dictated by: Jimbo Cadena M.D. on 04/15/2025 at 1:37 Approved by: Jimbo Cadena M.D. on 04/15/2025 at 1:38 Extremity x-ray #2: Radiologist's Impression: [address] [address] XRay Report Signed Patient: Esvin Ritter MR#: [id number] : 1980 Acct:[id number] Age/Sex: 44 / M Date of Service: 04/15/25 Loc: ED Accession Number: [id number] Procedure: XR wrist LT min 3V Ordering Provider: Frandy Del Rio D.O. PROCEDURE: XR WRIST LT MIN 3V INDICATIONS: fall, pain TECHNIQUE: 3 views of the wrist were acquired. COMPARISON: None. FINDINGS AND IMPRESSION: No dislocation. No acute displaced fracture. No suspicious soft tissue calcifications. If there is high concern for occult injury, consider repeat radiography or cross-sectional imaging. Dictated by: Jimbo Cadena M.D. on 04/15/2025 at 1:34 Approved by: Jimbo Cadena M.D. on 04/15/2025 at 1:35 Extremity x-ray #3: Radiologist's Impression: [place] [address] XRay Report Signed Patient: Esvin Ritter MR#: [id number] : 1980 Acct:[id number] Age/Sex: 44 / M Date of Service: 04/15/25 Loc: ED Accession Number: [id number] Procedure: XR elbow LT min 3V Ordering Provider: Frandy Del Rio D.O. PROCEDURE: XR ELBOW LT MIN 3V INDICATIONS: fall, pain TECHNIQUE: 2 views of the elbow were acquired. COMPARISON: None. FINDINGS AND IMPRESSION: No displaced fracture or dislocation. Slightly irregular contour on lateral view of the radial neck, possibly artifact as there is no significant joint effusion. Positioning mildly limits evaluation. If there is high concern for occult injury, consider repeat radiography or cross-sectional imaging. Dictated by: Jimbo Cadena M.D. on 04/15/2025 at 1:35 Approved by: Jimbo Cadena M.D. on 04/15/2025 at 1:36 MDM Narrative Medical decision making narrative: Vital signs nurse triage note medication list previous ER visits in all x-rays reviewed left shoulder x-ray reveals mildly displaced and comminuted fractures of the proximal humerus involving the greater tuberosity lesser tuberosity and neck. Rounding joint effusion and deem or present. No glenohumeral dislocation identified. Left left wrist and elbow and chest x-ray completed showing no other acute process. Differential diagnosis includes fracture, dislocation, arthritis, tendinitis. DC home on hydrocodone and to follow up with orthopedic surgeon next week and sling placed. Discharge Plan Departure Patient Disposition: Home Clinical Impression: Fracture, humerus closed Qualifiers: Encounter type: initial encounter Humerus Location: proximal Fracture morphology: other fracture Fracture alignment: displaced Laterality: left Qualified Code(s): S42.292A - Other displaced fracture of upper end of left humerus, initial encounter for closed fracture Instructions: DI for Shoulder Fracture Activity Restrictions/Additional Instructions: Return with new or worsening symptoms. Take your medicines as directed. Follow up with orthopedic surgeon regarding your fracture. Prescriptions: New hydrocodone-acetaminophen 5-325 mg tablet 1 tab PO Q4-6H PRN (Reason: pain) Qty: 20 0RF No Action methylprednisolone [Medrol (Jase)] 4 mg tablets,dose pack See Rx Instructions PO PER PKG DIR Qty: 21 0RF Rx Instructions: PO PER PKG DIR for 6 days Referrals: Miscellaneous,MD Scott [Primary Care Provider] - Houston Dimas MD [Physician] - 3-5 days Stand Alone Forms: Patient Portal/API/Survey
[2025-04-15 02:42] VITALS: BP 142/81; PULSE 55; RESP 18; O2SAT 97
[2025-04-15] MEDS: HYDROCODONE/ACET 5/325 TABLET 1 TAB PO (02:50)
[2025-04-15] MEDS: IBUPROFEN 400 MG TABLET 800 MG PO (02:50)
== END 2025-04-15 03:09 | disposition home or self-care (01) ==
PROVIDERS: Emergency Provider Family Medicine
DX: S42.292A Other displaced fracture of upper end of left humerus, initial encounter for closed fracture (principal); R07.9 Chest pain, unspecified; W01.0XXA Fall on same level from slipping, tripping and stumbling without subsequent striking against object, initial encounter
CPT/HCPCS: 71045; 73030; 73080; 73110; 99283

== ENCOUNTER 2025-04-28 08:15 | Emergency (ER) | payer OTHER, SELFPAY ==
[2025-04-28 08:32] VITALS: BP 135/97; PULSE 60; RESP 16; TEMP 36.6; O2SAT 95; BMI 28.8
--- NOTE | 2025-04-28 10:30 | ED_ITS ---
HPI - Recheck/Abnormal Lab/Rx General Chief Complaint: Recheck/Abnormal Lab/Rx Stated Complaint: Broken arm 3 weeks ago still in pain Time Seen by Provider: 04/28/25 10:18 History of Present Illness HPI narrative: 44-year-old gentleman seen by me originally for a mildly displaced and co mminuted fracture of the proximal humerus involving the greater tuberosity seen by orthopedics pending CT scan for which apparently no one had called him for the April 18 appointment and he is here for pain control as he ran out of his [place]. He states he has an appointment now on Wednesday for CT scan and will then follow up with Orthopedics subsequently afterwards for potential surgery. Other than what is stated 14 point review of system is negative. Related Data Previous Rx's ?Medication ?Instructions ?Recorded hydrocodone 5 mg-acetaminophen 325 1 tab PO Q4-6H PRN pain #20 tabs 05/25/25 mg tablet hydrocodone 5 mg-acetaminophen 325 1 tab PO Q4-6H PRN pain #20 tabs 05/25/25 mg tablet hydrocodone 5 mg-acetaminophen 325 1 tab PO Q4-6H PRN pain #20 tabs 06/07/25 mg tablet Allergies Allergy/AdvReac Type Severity Reaction Status Date / Time Penicillins Allergy Mild Hives Verified 04/28/25 08:32 Review of Systems Review of Systems ROS Unobtainable: All systems reviewed & are unremarkable except as noted in HPI and below Patient History Family History (Updated 04/18/25 @ 14:03 by Tom Huertas CMA) Father Diabetes mellitus Hypertension Mother Diabetes mellitus Hypertension tobacco type: cigarettes alcohol intake frequency: 0-2 drinks per day Exam Narrative Exam Narrative: GENERAL: [44] year old patient appears stated age. Well-developed patient, in mild distress. HEAD: Atraumatic. Normocephalic. EYES: Pupils equal round and reactive. Extraocular motions intact. No scleral icterus. No injection or drainage. EXTREMITIES: No edema or joint tenderness. L shoulder no erythema swelling bruising or atrophy, palpation and range of motion deferred due to known fracture. motor sensory intact +2 radial pulse BACK: Nontender without deformity or crepitance. No flank tenderness. NEURO: AOx3. SKIN: No rash or erythema of visible areas Initial Vital Signs Initial Vital Signs: Vital Signs Temperature 97.8 F 04/28/25 08:32 Pulse Rate 60 04/28/25 08:32 Respiratory Rate 16 04/28/25 08:32 Blood Pressure 135/97 H 04/28/25 08:32 Pulse Oximetry 95 04/28/25 08:32 Oxygen Delivery Method Room Air 04/28/25 08:32 Course Vital Signs Vital signs: Vital Signs - 8 hr 04/28/25 08:32 Temperature 97.8 F Pulse Rate 60 Respiratory Rate 16 Blood Pressure 135/97 H Pulse Oximetry 95 Oxygen Delivery Method Room Air MDM - Recheck/Abnormal Lab/Rx MDM Narrative Medical decision making narrative: Vital signs, nurse triage note, medication list, previous ER visits, and all imaging modalities reviewed. cytotechnologist/cytology supervisor has arranged appointment for patient for CT scan. Patient will be discharged on [place] prescription at this time for pain control and then follow up with orthopedic surgery Discharge Plan Departure Patient Disposition: Home Clinical Impression: Fracture, humerus closed, Encounter for medication refill Activity Restrictions/Additional Instructions: Please follow up for outpatient CT scan and orthopedic surgery appointment. Take medicines as directed. Return with new or worsening symptoms Prescriptions: New hydrocodone-acetaminophen 5-325 mg tablet 1 tab PO Q4-6H PRN (Reason: pain) Qty: 20 0RF No Action hydrocodone-acetaminophen 5-325 mg tablet 1 tab PO Q4-6H PRN (Reason: pain) Qty: 20 0RF hydrocodone-acetaminophen 5-325 mg tablet 1 tab PO Q4-6H PRN (Reason: pain) Qty: 20 0RF Stand Alone Forms: Patient Portal/API
--- NOTE | 2025-04-28 10:35 | PC.NURSE ---
Called CT to confirm that pt has a scheduled CT on wednesday. CT advised that he was a no show to his appt on 04/18.
[2025-04-28] MEDS: IBUPROFEN 400 MG TABLET 800 MG PO (10:50)
[2025-04-28] MEDS: HYDROCODONE/ACET 5/325 TABLET 1 TAB PO (10:50)
--- NOTE | 2025-04-28 10:51 | PC.NURSE ---
pt medicated for pain per JAN. Pt to be DC'd and will check in at desk for outpatient CT which can be done after DC.
== END 2025-04-28 10:54 | disposition home or self-care (01) ==
PROVIDERS: Emergency Provider Family Medicine
DX: S42.302D Unspecified fracture of shaft of humerus, left arm, subsequent encounter for fracture with routine healing (principal); Z76.0 Encounter for issue of repeat prescription
CPT/HCPCS: 73200; 99283

== ENCOUNTER → 2025-04-28 10:55 | Outpatient (CLI) | payer OTHER, SELFPAY ==
--- NOTE | 2025-04-28 12:00 | DI.CT.S_ITS ---
PROCEDURE: CT SHOULDER LEFT WITHOUT CON INDICATIONS: surgical planning TECHNIQUE: Noncontrast 0.75 mm thick sections acquired from the acromioclavicular joint to the inferior scapula, with coronal and sagittal reformatting. DANGELO interpretation requested COMPARISON: None. FINDINGS: Image quality: Excellent. Bones: Comminuted proximal humeral fracture involves the humeral neck and greater tuberosity. Minimal displacement. No angulation. Scapula unremarkable. Humeral head articulates with the glenoid fossa. No evidence of rib fracture. Left lung apex clear. No pneumothorax IMPRESSION: Comminuted minimally displaced proximal humeral fracture Approved by: Houston Case M.D. on 04/28/2025 at 11:56
== END ==
LOC: CT 10:57
PROVIDERS: Referring Provider Orthopaedic Surgery; Visit Provider Orthopaedic Surgery
DX: S42.255A Nondisplaced fracture of greater tuberosity of left humerus, initial encounter for closed fracture (principal)
CPT/HCPCS: 73200

== ENCOUNTER 2025-05-29 12:56 | Emergency (ER) | payer OTHER, SELFPAY ==
[2025-05-29 13:24] VITALS: BP 125/77; PULSE 75; RESP 16; TEMP 36.4; O2SAT 98; BMI 27.5
--- NOTE | 2025-05-29 13:42 | ED.BURNSMOKE ---
HPI - Burn/Smoke Inhalation <Nicole Upton PA-C - Last Filed: 05/29/25 14:13> General Chief complaint: Burn/Smoke Inhalation Stated complaint: Hot coffee belly and down the leg Time Seen by Provider: 05/29/25 13:30 Source: patient Mode of arrival: Ambulatory History of Present Illness HPI Narrative: 44-year-old male presents to the ED with a complaint of fernandez on his legs from spilling coffee that he bought from [employer]. Patient states that he is experiencing some burning pain on bilateral legs. No numbness, tingling, weakness. Related Data Previous Rx's ?Medication ?Instructions ?Recorded hydrocodone 5 mg-acetaminophen 325 1 tab PO Q4-6H PRN pain #20 tabs 05/25/25 mg tablet hydrocodone 5 mg-acetaminophen 325 1 tab PO Q4-6H PRN pain #20 tabs 05/25/25 mg tablet hydrocodone 5 mg-acetaminophen 325 1 tab PO Q4-6H PRN pain #20 tabs 06/07/25 mg tablet Allergies Allergy/AdvReac Type Severity Reaction Status Date / Time Penicillins Allergy Mild Hives Verified 05/29/25 12:34 iodine Allergy Verified 05/29/25 13:25 Review of Systems <Nicole Upton PA-C - Last Filed: 05/29/25 14:13> Constitutional Constitutional: Denies chills, Denies fatigue, Denies fever(s), Denies frequent falls, Denies lethargy and Denies weakness Eyes Eyes: Denies change in vision, Denies eye discharge, Denies irritation and Denies loss of vision ENT Ears, Nose, Mouth, and Throat: Denies change in voice, Denies dizziness, Denies neck pain, Denies sore throat and Denies throat swelling Cardiovascular Cardiovascular: Denies chest pain, Denies irregular heart rhythm, Denies lightheadedness, Denies palpitations, Denies dyspnea, Denies dyspnea on exertion and Denies orthopnea Respiratory Respiratory: Denies cough, Denies dyspnea, Denies dyspnea on exertion and Denies wheezing Gastrointestinal Gastrointestinal: Denies abdominal pain, Denies change in bowel habits, Denies diarrhea, Denies nausea and Denies vomiting Musculoskeletal Musculoskeletal: Denies neck pain and Denies numbness Integumentary/Breasts Skin/Breast: Denies pruritus, Denies erythema, Denies rash and Denies wounds Comments: Burning sensation on bilateral legs Neurologic Neurologic: Denies behavioral changes, Denies confusion, Denies dizziness, Denies frequent falls, Denies loss of vision, Denies numbness and Denies weakness Psychiatric Psychiatric: Denies anxiety, Denies behavioral changes, Denies confusion, Denies depression, Denies homicidal ideation and Denies suicidal ideation Endocrine Endocrine: Denies fatigue, Denies flushing and Denies palpitations Hematologic/Lymphatic Hematologic/Lymphatic: Denies easy bruising Allergic/Immunologic Allergic/Immunologic: Denies urticaria, Denies throat swelling and Denies wheezing Patient History <Nicole Upton PA-C - Last Filed: 05/29/25 14:13> Family History Father Diabetes mellitus Hypertension Mother Diabetes mellitus Hypertension tobacco type: cigarettes alcohol intake frequency: 0-2 drinks per day Exam <Nicole Upton PA-C - Last Filed: 05/29/25 14:13> Narrative Exam Narrative: Const General:?cooperative, healthy appearing and comfortable [facility] Head:?normal to inspection Ears:?hearing grossly normal bilaterally Nose:?external nose normal Face and sinus:?normal facial exam and sinuses nontender Mouth:?oral mucosae normal Throat:?posterior oropharynx normal Eyes General:?appearance normal, both eyes and all related structures Neck Neck:?normal visual inspection and no lymphadenopathy noted Resp Effort & Inspection:?normal respiratory effort Auscultation:?clear to auscultation bilaterally Cardio Rate:?regular rate Rhythm:?regular rhythm Integumentary No visible signs of a burn injury. No erythema, blistering, tenderness to palpation. Skin is intact. Neuro General:?patient alert, patient awake and patient oriented x3 Initial Vital Signs Initial Vital Signs: Vital Signs Temperature 97.6 F 05/29/25 13:24 Pulse Rate 75 05/29/25 13:24 Respiratory Rate 16 05/29/25 13:24 Blood Pressure 125/77 05/29/25 13:24 Pulse Oximetry 98 05/29/25 13:24 Oxygen Delivery Method Room Air 05/29/25 13:24 <Scarlett Luther MD - Last Filed: 05/31/25 00:26> Initial Vital Signs Initial Vital Signs: Vital Signs Temperature 97.6 F 05/29/25 13:24 Pulse Rate 75 05/29/25 13:24 Respiratory Rate 16 05/29/25 13:24 Blood Pressure 125/77 05/29/25 13:24 Pulse Oximetry 98 05/29/25 13:24 Oxygen Delivery Method Room Air 05/29/25 13:24 Course <Nicole Upton PA-C - Last Filed: 05/29/25 14:13> Vital Signs Vital signs: Vital Signs - 8 hr 05/29/25 13:24 Temperature 97.6 F Pulse Rate 75 Respiratory Rate 16 Blood Pressure 125/77 Pulse Oximetry 98 Oxygen Delivery Method Room Air <Scarlett Luther MD - Last Filed: 05/31/25 00:26> Vital Signs Vital signs: Vital Signs - 8 hr 05/29/25 13:24 Temperature 97.6 F Pulse Rate 75 Respiratory Rate 16 Blood Pressure 125/77 Pulse Oximetry 98 Oxygen Delivery Method Room Air MDM - Burn/Smoke Inhalation <Nicole Upton PA-C - Last Filed: 05/29/25 14:13> MDM Narrative Medical decision making narrative: 44-year-old male presents to the ED with a complaint of fernandez on his legs from spilling coffee that he bought from [employer]. Physical exam is reassuring, skin is intact. No visible signs of burn, including blisters, erythema. Recommend applying ice, taking Tylenol/ibuprofen. ED return precautions discussed with patient. Patient verbalized understanding. Medical records reviewed: Yes Discharge Plan Departure Patient Disposition: Home Clinical Impression: Leg injury Qualifiers: Encounter type: initial encounter Laterality: right Qualified Code(s): S89.91XA - Unspecified injury of right lower leg, initial encounter Instructions: DI for Fernandez Activity Restrictions/Additional Instructions: You were evaluated in the emergency department for a leg injury. It is reassuring to note that on physical exam, no visible signs of a burn injury are noted and your skin is intact. You seem to be experiencing some slight burning from spilling coffee on the leg. You may apply ice, take ibuprofen or Tylenol. Return to the ED if you have worsening symptoms. Prescriptions: No Action hydrocodone-acetaminophen 5-325 mg tablet 1 tab PO Q4-6H PRN (Reason: pain) Qty: 20 0RF hydrocodone-acetaminophen 5-325 mg tablet 1 tab PO Q4-6H PRN (Reason: pain) Qty: 20 0RF hydrocodone-acetaminophen 5-325 mg tablet 1 tab PO Q4-6H PRN (Reason: pain) Qty: 20 0RF Referrals: Miscellaneous,Doctor, [Primary Care Provider, Medical] Stand Alone Forms: Patient Portal/API ED Sign-out <Scarlett Luther MD - Last Filed: 05/31/25 00:26> Cosign ED Attending Cosignature Attestation: I was immediately available in the department for consultation throughout this patient's visit. Scarlett Luther MD
== END 2025-05-29 14:08 | disposition home or self-care (01) ==
PROVIDERS: Emergency Provider Student in an Organized Health Care Education/Training Program
DX: S89.91XA Unspecified injury of right lower leg, initial encounter (principal); S89.92XA Unspecified injury of left lower leg, initial encounter; X10.0XXA Contact with hot drinks, initial encounter
CPT/HCPCS: 99281